=== PATIENT | female | born 1950 | race Caucasian/White ===

== ENCOUNTER → 2020-08-20 | Outpatient (CLI) | payer MEDICARE, OTHER ==
[~2020-08-20] MED LIST: 24HR ALLERGY REL5 MG PO; ACYCLOVIR800 MG PO; ADVAIR 500-501 EACH INH; ASPIR 8181 MG PO; AUGMENTIN 875-1 EACH PO; AUGMENTIN TAB875 MG PO; BACTRIM DS TAB1 EACH PO; COMBIVENT INHALE4 GM INH; CRESTOR10 MG PO; DALIRESP500 MCG PO; DOXYCYCLINE HY100 M2 PO; EFFEXOR 25 MG T25 MG PO; EXPECTORANT200 MG PO; FLOMAX 0.4 MG0.4 MG PO; FUROSEMIDE20 MG PO; HYDROCODON-ACE1 EAC6 PO; INCRUSE ELLI62.5 MCG INH; IPRAT-ALBUT 0.5-3 ML INH; IPRAT-ALBUT 0.5-3 ML NEB; KEFLEX CAP 500500 MG PO; LASIX20 MG PO; LEVAQUIN500 MG PO; LEVOTHYROXINE112 MCG PO; LEVOTHYROXINE125 MCG PO; LIDOCAINE PAIN1 EACH TOP; LISINOPRIL5 MG PO; LOPRESSOR 25 MG25 MG PO; MACROBID 100 M100 MG PO; MEDROL DOSEPAK 24 MG PO; MEDROL TAB 4 MG4 MG PO; MEDROL4 MG PO; MELOXICAM7.5 MG PO; METOPROLOL TART25 MG PO; MOBIC7.5 MG PO; MOMETASONE; MONTELUKAST SOD10 MG PO; OMNICEF 300 MG300 MG PO; PLAVIX 75 MG TA75 MG PO; PREDNISONE 10 M10 MG PO; PREDNISONE20 MG PO; PREDNISONE50 MG PO; PROTONIX40 MG PO; TAMIFLU 75 MG C75 MG PO; TORADOL 10 MG T10 MG PO; TOVIAZ8 MG PO; TYLENOL 325MG325 MG PO; URSODIOL300 MG PO; VENLAFAXINE HC100 MG PO; VENTOLIN HFA 66.7 GM INH; VIBRAMYCIN 100100 MG PO; VIBRAMYCIN100 MG PO; ZESTRIL2.5 MG PO; ZITHROMAX500 MG PO; ZOLPIDEM TARTRA10 MG PO
== END ==
LOC: EXRD 11:40
DX: N20.0 Calculus of kidney (principal)
CPT/HCPCS: 74018

== ENCOUNTER → 2020-11-02 | Outpatient (CLI) | payer MEDICARE, OTHER ==
[~2020-11-02] MED LIST changes: +CEFUROXIME500 MG PO
== END ==
LOC: LAB 14:11
DX: J44.9 Chronic obstructive pulmonary disease, unspecified (principal)
CPT/HCPCS: 36600; 71046; 82803

== ENCOUNTER → 2021-04-28 | Outpatient (CLI) | payer MEDICARE, OTHER | LOC: KOH-I 12:59 | DX: N13.2 Hydronephrosis with renal and ureteral calculous obstruction (principal) | CPT/HCPCS: 74176 ==

== ENCOUNTER 2021-05-25 08:36 | Emergency (ER) | payer MEDICARE, OTHER ==
[~2021-05-25] VITALS: Ht 165.1 cm; Wt 86.2 kg
[2021-05-25 09:52] LABS: HEMOGLOBIN 12.5 gm/dl (12.3-15.3); RED BLOOD COUNT 4.75 M/UL (4.00-5.10); WHITE BLOOD COUNT 7.1 K/UL (4.5-11.0)
[2021-05-25] MEDS ORDERED: DECADRON6 MG PO (13:40)
[2021-05-25] MEDS ORDERED: LEVOFLOXACIN500 MG PO (13:40)
== END 2021-05-25 14:40 | disposition home or self-care (01) ==
LOC: ER1 08:36
PROVIDERS: Emergency Medicine
DX: U07.1 COVID-19 (principal); N39.0 Urinary tract infection, site not specified; J44.9 Chronic obstructive pulmonary disease, unspecified; Z87.442 Personal history of urinary calculi; Z95.0 Presence of cardiac pacemaker
CPT/HCPCS: 71045; 80053; 81001; 82550; 82553; 83605; 84484; 85025; 85610; 85730; 87040; 93005; 94640; 94664; 96374; 99285; J2930; M0247; U0002

== ENCOUNTER → 2021-06-07 | Outpatient (CLI) | payer MEDICARE, OTHER ==
[~2021-06-07] MED LIST changes: +DECADRON6 MG PO; +LEVOFLOXACIN500 MG PO
== END ==
LOC: HEART 5 14:00
DX: J44.9 Chronic obstructive pulmonary disease, unspecified (principal)
CPT/HCPCS: 94060; 94729

== ENCOUNTER → 2021-07-07 | Outpatient (CLI) | payer MEDICARE, OTHER | LOC: ECHO 11:45 | DX: I50.22 Chronic systolic (congestive) heart failure (principal); I42.0 Dilated cardiomyopathy; I27.20 Pulmonary hypertension, unspecified; I70.0 Atherosclerosis of aorta; I07.1 Rheumatic tricuspid insufficiency; Z95.0 Presence of cardiac pacemaker | CPT/HCPCS: ECHO; 93306 ==

== ENCOUNTER → 2021-09-27 | Outpatient (CLI) | payer MEDICARE, OTHER | LOC: MAMO 13:53 | DX: Z12.31 Encounter for screening mammogram for malignant neoplasm of breast (principal); Z95.0 Presence of cardiac pacemaker; Z78.0 Asymptomatic menopausal state | CPT/HCPCS: 77063; 77067 ==